=== PATIENT | female | born 1970 | race Asian ===

== ENCOUNTER 2019-04-18 09:56 | Emergency (ER) | payer OTHER ==
[~2019-04-18] VITALS: Ht 149.9 cm; Wt 60.8 kg
[2019-04-18 10:02] VITALS: BP 159/99
--- NOTE | 2019-04-18 10:10 | NUR ---
BIB SON. AAO X4 C/O SUDDEN ONSET OF VERTIGO WITH LEFT EAR PAIN X LAST NIGHT NAUSEA---DENIES RECENT INJURY. FULL CLEAR SPEECH, PERRLA BRISK 3 MM, NO FACIAL ASYMMETRY NOTED, EQUAL BUE SLEEP LAB TECHNICIAN/PUSHES. ER TO EVALUATE PT.
--- NOTE | 2019-04-18 10:29 | NUR ---
DR CARTWRIGHT AT BEDSIDE FOR PT EVAL
[2019-04-18] MEDS ORDERED: ONDANSETRON 4 MG ODT PO ONE (10:30)
[2019-04-18] MEDS ORDERED: MECLIZINE 25 MG TAB PO ONE (10:30)
[2019-04-18] MEDS ORDERED: DEXAMETHASONE 10 MG/ML VIAL IM ONE (10:30)
[2019-04-18] MEDS ORDERED: PROMETHAZINE 25 MG/ML VIAL IM ONE (10:30)
--- NOTE | 2019-04-18 10:41 | NUR ---
PT TAKEN TO CT VIA BED BY PEANUT SORTER
--- NOTE | 2019-04-18 11:45 | NUR ---
PT TAKEN TO THE BATHROOM VIA WHEEL CHAIR BY EMT
--- NOTE | 2019-04-18 11:50 | NUR ---
PT TAKEN BACK TO BED VIA WHEEL CHAIR BY EMT
[2019-04-18 11:59] VITALS: BP 148/90
--- NOTE | 2019-04-18 11:59 | NUR ---
Patient discharged with v/s stable. Written and verbal after care instructions given and explained. Patient alert, oriented and verbalized understanding of instructions. Wheel Chair Assisted with by son. All questions addressed prior to discharge. ID band removed. Patient advised to follow up with PMD. Rx of Antivert, Phenergan rectal suppository given. Patient educated on indication of medication including possible reaction and side effects. Opportunity to ask questions provided and answered.
== END 2019-04-18 11:59 | disposition home or self-care (01) ==
LOC: MED 09:56
DX: R42 Dizziness and giddiness (principal); H92.02 Otalgia, left ear; R20.0 Anesthesia of skin; R11.2 Nausea with vomiting, unspecified
CPT/HCPCS: 70450; 81025; 96372; 99284; J1100; J2550; J8597; Q0162

== ENCOUNTER 2021-03-20 09:10 | Emergency (ER) | payer OTHER ==
[~2021-03-20] VITALS: Ht 152.4 cm; Wt 62.6 kg
[2021-03-20 09:14] VITALS: BP 139/86
--- NOTE | 2021-03-20 09:19 | NUR ---
Patient ambulated to bed 8.
--- NOTE | 2021-03-20 09:42 | NUR ---
Dr. Eddy is evaluating patient at bedside.
--- NOTE | 2021-03-20 10:13 | NUR ---
Rajat merino swab collected, walked to lab and handed to CPT Ishan.
[2021-03-20] MEDS: NACL 0.9% 1,000 ML IV ONE (10:17)
--- NOTE | 2021-03-20 10:17 | NUR ---
ROBI SWAB SENT TO LAB
--- NOTE | 2021-03-20 10:23 | NUR ---
50 YEAR OLD FEMALE COMPLAINS OF WEAKNESS AND BODYACHE X 4 DAYS AFTER COVID VACCINATION. PT DENIES NAUSEA, VOMITTING, DIARRHEA. PT STATE SSHE FEELS COLD SYMPTOMS. PT AOX4, BREATHING EVEN AND UNLABORED, SKIN WARM AND DRY. BED IN LOWEST POSITION, LOCKED, BED RAIL UPX1. PMH - THYROIDECTOMY ALLERGIES - NKA
[2021-03-20 11:50] VITALS: BP 139/86
--- NOTE | 2021-03-20 11:50 | NUR ---
Patient discharged with v/s stable. Written and verbal after care instructions about musculoskeletal pain given and explained. Patient verbalized understanding. Ambulatory with steady gait. All questions addressed prior to discharge. Advised to follow up with PMD.
[2021-03-20] MEDS ORDERED: IBUP-2213 PO (11:51)
== END 2021-03-20 11:50 | disposition home or self-care (01) ==
LOC: MED 09:10
DX: R50.83 Postvaccination fever (principal); T50.B95A Adverse effect of other viral vaccines, initial encounter; Y92.89 Other specified places as the place of occurrence of the external cause
CPT/HCPCS: 87426; 96360; 99283; J7030

== ENCOUNTER 2021-09-27 09:47 | Emergency (ER) | payer OTHER ==
[~2021-09-27] VITALS: Ht 152.4 cm; Wt 60.8 kg
[~2021-09-27 09:47] MED LIST: IBUP-2213 PO
[2021-09-27 09:56] VITALS: BP 129/55
--- NOTE | 2021-09-27 10:17 | NUR ---
51/F BIB SELF WITH C/O BODY ACHES, CHILLS AND FEVER SINCE YESTERDAY. PATIENT STATES SHE RECEIVED HER MODERNA BOOSTER SHOT YESTERDAY ON HER LEFT ARM AND HAS SINCE BEEN HAVING WORSENING BODYACHES, CHILLS AND INTERMITTENT FEVERS. REPORTS TAKING IBUPROFEN WITH MILD RELIEF, PATIENT ALSO C/O RIGHT SIDED WEAKNESS. PATIENT DENIES CP, SOB, N/V/D, OR URINARY SYMPTOMS.
[2021-09-27 10:38] VITALS: BP 129/55
--- NOTE | 2021-09-27 10:38 | NUR ---
Patient discharged with v/s stable. Written and verbal after care instructions given and explained. Patient verbalized understanding. Ambulatory with steady gait. All questions addressed prior to discharge. Advised to follow up with PMD.
== END 2021-09-27 10:38 | disposition home or self-care (01) ==
LOC: MED 09:47
DX: M79.18 Myalgia, other site (principal); E03.9 Hypothyroidism, unspecified; Z98.890 Other specified postprocedural states; Z79.1 Long term (current) use of non-steroidal anti-inflammatories (NSAID); Z88.6 Allergy status to analgesic agent; Z88.8 Allergy status to other drugs, medicaments and biological substances
CPT/HCPCS: 99281; 99283

== ENCOUNTER 2022-06-08 10:45 | Emergency (ER) | payer OTHER ==
[~2022-06-08] VITALS: Ht 152.4 cm; Wt 59.6 kg
[2022-06-08 10:47] VITALS: BP 119/71
--- NOTE | 2022-06-08 10:57 | NUR ---
PT AMBULATED TO BED 04.
[2022-06-08 11:52] LABS: BASOPHILS % (AUTO) 0.4 % (0.0-2.0); EOSINOPHILS # (AUTO) 0.2 K/uL (0-0.4); EOSINOPHILS % (AUTO) 3.2 % (0.0-4.0); HEMATOCRIT 39.4 % (36-48); HEMOGLOBIN 13.5 g/dL (12.0-16.0); LYMPHOCYTES # (AUTO) 2.3 K/uL (2.5-16.5); LYMPHOCYTES % (AUTO) 32.6 % (20.5-51.1); MEAN CORPUSCULAR HEMOGLOBIN 29 pg (27-31); MEAN CORPUSCULAR HGB CONC 34 g/dL (33-37); MEAN CORPUSCULAR VOLUME 84.2 fL (80-94); MONOCYTES # (AUTO) 0.5 K/uL (0.8-1.0); MONOCYTES % (AUTO) 6.6 % (1.7-9.3); NEUTROPHILS # (AUTO) 4.1 K/uL (1.8-7.7); NEUTROPHILS % (AUTO) 57.2 % (42.2-75.2); PLATELET COUNT (AUTO) 280 K/uL (140-450); RED BLOOD CELL COUNT(AUTO) 4.68 MIL/uL (4.20-5.40); RED CELL DISTRIBUTION WIDTH 13.5 % (11.6-13.7); WHITE BLOOD COUNT (AUTO) 7.1 K/uL (4.8-10.8)
[2022-06-08 12:09] LABS: ALBUMIN 3.5 g/dL (3.4-5.0); ANION GAP 9.2 (8-16); CARBON DIOXIDE 30.3 mmol/L (21-32); CREATININE 0.8 mg/dL (0.6-1.3); TOTAL BILIRUBIN 0.6 mg/dL (0.0-1.0)
[2022-06-08 12:17] LABS: POTASSIUM 2.5 mmol/L (3.5-5.1)
[2022-06-08] MEDS ORDERED: POTASSIUM CHL 40 MEQ/ D5-1/2NS 1,000 ML IV ONE (12:45)
[2022-06-08] MEDS ORDERED: POTASSIUM CHLORIDE 10 MEQ TABER PO ONE (12:45)
[2022-06-08] MEDS ORDERED: KCL 20 MEQ/WATER INJ PREMIX 100 ML IV ONE (15:15)
[2022-06-08] MEDS ORDERED: ATEN50TA8 PO (16:23)
[2022-06-08] MEDS ORDERED: ALBU0.63 IH (16:23)
[2022-06-08 17:38] VITALS: BP 119/74
== END 2022-06-08 17:39 | disposition home or self-care (01) ==
LOC: MED 10:45
DX: N93.9 Abnormal uterine and vaginal bleeding, unspecified (principal); R53.1 Weakness; E87.6 Hypokalemia; E03.9 Hypothyroidism, unspecified; Z79.899 Other long term (current) drug therapy; Z88.6 Allergy status to analgesic agent; Z88.8 Allergy status to other drugs, medicaments and biological substances
CPT/HCPCS: 36415; 76856; 80053; 81002; 81025; 83735; 84132; 84702; 85025; 96365; 96366; 96367; 99291; 99292; J3480; Q0092; 99282; 99285

== ENCOUNTER 2023-07-15 05:43 | Emergency (ER) | payer OTHER ==
[~2023-07-15] VITALS: Ht 152.4 cm; Wt 60.8 kg
[~2023-07-15 05:43] MED LIST changes: +ALBU0.63 IH; +ATEN50TA8 PO; -IBUP-2213 PO
[2023-07-15 05:50] VITALS: BP 130/83; PULSE 77; RESP 17; TEMP 98.1; O2SAT 98
[2023-07-15 06:05] VITALS: BP 130/83; PULSE 77; RESP 17; TEMP 98.1; O2SAT 98
[2023-07-15 06:27] LABS: APPEARANCE,URINE CLEAR (CLEAR); BILIRUBIN,URINE NEGATIVE (NEGATIVE); BLOOD, URINE NEGATIVE (NEGATIVE); COLOR,URINE YELLOW (YELLOW); LEUKOCYTE ESTERASE ,URINE 1+ (NEGATIVE); NITRITE, URINE NEGATIVE (NEGATIVE); PROTEIN,URINE NEGATIVE (NEGATIVE); UGLUCOSE NEGATIVE (NEGATIVE); UROBILINOGEN,URINE 0.2 EU/dL (0.2 - 1)
[2023-07-15 06:40] LABS: RBC,URINE 0-5 /HPF (0-5)
[2023-07-15 06:41] LABS: BACTERIA,URINE 0-2 /HPF (None Seen); SQUAMOUS EPITHELIAL CELL,UR 0-3 (FEW) /LPF (0-3 (FEW))
[2023-07-15 06:55] LABS: ALBUMIN 3.7 g/dL (3.4-5.0); ANION GAP 11.9 (8-16); CALCIUM 9.2 mg/dL (8.5-10.1); CREATININE 0.7 mg/dL (0.6-1.3); POTASSIUM 3.9 mmol/L (3.5-5.1); TOTAL BILIRUBIN 0.4 mg/dL (0.0-1.0); TOTAL PROTEIN, SERUM 7.3 g/dL (6.4-8.2)
[2023-07-15 07:25] LABS: BASOPHILS % (AUTO) 0.3 % (0.0-2.0); EOSINOPHILS # (AUTO) 0.2 K/uL (0-0.4); EOSINOPHILS % (AUTO) 2.6 % (0.0-4.0); HEMATOCRIT 37.9 % (36-48); HEMOGLOBIN 12.7 g/dL (12.0-16.0); LYMPHOCYTES % (AUTO) 24.2 % (20.5-51.1); MEAN CORPUSCULAR HEMOGLOBIN 29 pg (27-31); MEAN CORPUSCULAR HGB CONC 34 g/dL (33-37); MEAN CORPUSCULAR VOLUME 85.4 fL (80-94); MONOCYTES # (AUTO) 0.6 K/uL (0.8-1.0); MONOCYTES % (AUTO) 7.1 % (1.7-9.3); NEUTROPHILS # (AUTO) 5.5 K/uL (1.8-7.7); NEUTROPHILS % (AUTO) 65.8 % (42.2-75.2); PLATELET COUNT (AUTO) 252 K/uL (140-450); RED BLOOD CELL COUNT(AUTO) 4.45 MIL/uL (4.20-5.40); RED CELL DISTRIBUTION WIDTH 12.8 % (11.6-13.7); WHITE BLOOD COUNT (AUTO) 8.4 K/uL (4.8-10.8)
[2023-07-15] MEDS ORDERED: CEPH-588 PO (08:52)
== END 2023-07-15 09:04 | disposition home or self-care (01) ==
LOC: MED 05:43
DX: N39.0 Urinary tract infection, site not specified (principal); E07.9 Disorder of thyroid, unspecified; Z79.899 Other long term (current) drug therapy; Z88.6 Allergy status to analgesic agent; Z88.8 Allergy status to other drugs, medicaments and biological substances
CPT/HCPCS: 36415; 80053; 81001; 81025; 83690; 85025; 87086; 99284

== ENCOUNTER 2024-03-22 19:27 | Emergency (ER) | payer OTHER ==
[~2024-03-22] VITALS: Ht 152.4 cm; Wt 67.6 kg
[~2024-03-22 19:27] MED LIST changes: +CEPH-588 PO
[2024-03-22 20:13] VITALS: BP 142/51; PULSE 75; RESP 18; TEMP 97.5; O2SAT 97
[2024-03-22 23:45] VITALS: BP 142/51; PULSE 75; RESP 18; TEMP 97.5; O2SAT 97
== END 2024-03-22 23:45 | disposition home or self-care (01) ==
LOC: MED 19:27
DX: R22.31 Localized swelling, mass and lump, right upper limb (principal); M25.531 Pain in right wrist; M25.511 Pain in right shoulder; Z86.39 Personal history of other endocrine, nutritional and metabolic disease; Z79.899 Other long term (current) drug therapy; Z88.6 Allergy status to analgesic agent; Z91.048 Other nonmedicinal substance allergy status
CPT/HCPCS: 73110; 93971; 99284